=== PATIENT | female | born 1970 ===

== ENCOUNTER 2017-11-07 12:05 | Emergency (ER) | payer MEDICAID ==
[2017-11-07 12:21] VITALS: BP 128/80; PULSE 96; RESP 18; TEMP 97.7; O2SAT 100
[2017-11-07] MEDS ORDERED: Lidocaine 5% Patch TD STA (12:46)
[2017-11-07] MEDS ORDERED: Lidocaine 5% Patch TD ONE (12:57)
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
== END 2017-11-07 13:05 | disposition home or self-care (01) ==
LOC: C.ER 12:05
DX: G89.29 Other chronic pain (principal)